=== PATIENT | male | born 1990 | race African-American/Black ===

== ENCOUNTER 2016-09-01 15:51 | Emergency (ER) | payer OTHER ==
[~2016-09-01] VITALS: Wt 89.0 kg
--- NOTE | 2016-09-01 17:25 | ERD ---
ER Documentation Chief Complaint Date/Time DATE: 09/01/16 TIME: 17:15 Chief Complaint right foot pain and swelling for 1 week HPI 26 y/o male presents to ED for right ankle pain for about 2 weeks. Pain was described as dull non-radiating 6/10 in rate. Reports that he tripped and fell 2 weeks ago, rolled his right ankle. States that he was ambulatory right after his injury. Patient is requesting an x-ray of his right ankle and foot. Denies headache, loss of consciousness, dizziness, blurry vision, changes in vision, photophobia, facial pain, ear pain, throat pain, difficulty swallowing, neck pain, shoulder pain, chest pain, cough, hemoptysis, abdominal pain, back pain, loss of appetite, nausea, vomiting, hematochezia, diarrhea, constipation, urinary symptoms, bladder and bowel incontinences, extremity weakness, extremity tenderness, numbness or tingling sensation, difficulty walking, recent travel, recent exposure to illness, recent antibiotic use in the last 3 months, fever, chills. Allergy: NKA PMH: Denies Medications: Denies Surgery: Denies Family history: Denies Primary Social History: Denies Occasional drinks alcoholic beverages. Denies smoking, use of illegal drugs. ROS All systems reviewed and are negative except as per history of present illness. Medications Home Meds Active Scripts Ibuprofen* (Motrin*) 600 Mg Tab, 600 MG PO Q6 Y for PAIN, #30 TAB Prov:REAGAN LORA 09/01/16 Allergies Allergies: Coded Allergies: No Known Allergy (Unverified , 09/01/16) PMhx/Soc History of Surgery: No Anesthesia Reaction: No Hx Neurological Disorder: No Hx Respiratory Disorders: No Hx Cardiac Disorders: No Hx Psychiatric Problems: No Hx Miscellaneous Medical Probl: No Hx Alcohol Use: Yes Hx Substance Use: No Hx Tobacco Use: No Smoking Status: Never smoker FmHx Denies Physical Exam Vitals Vital Signs Date Time Temp Pulse Resp B/P Pulse Ox O2 Delivery O2 Flow Rate FiO2 09/01/16 15:54 98.6 69 20 129/76 98 Physical Exam CONSTITUTIONAL: Well-appearing; well-nourished; in no apparent distress. HEAD: Normocephalic; atraumatic. EYES: Conjunctiva clear, sclera non-icteric, EOM intact. PERRL Ears: Hearing intact. EACs clear, TMs non-bulging, non-inflamed, translucent & mobile, ossicles normal appearance, No obstructions, no erythema, no discharges Nose: No obstructions. No polyps. No external lesions. Mucosa non-inflamed. No external lesions, septum and turbinates normal. No rhinorrhea. No discharges. Frontal sinus is non-tender to palpation. Maxillary sinus is non-tender to palpation. MOUTH: Moist mucous membranes, no lesion, no obstructions, no vesicles, no thrush, patent airway Throat: Uvula in midline. Right tonsil is +1 with no erythema, no exudate. Left tonsil is +1 with no erythema, no exudate. Tolerating secretions well. Good gag reflex. Patent airway. Neck: Supple, without lesions, bruits, or adenopathy. No mass. Thyroid non- enlarged and non-tender to palpation. CHEST: Symmetrical chest. Respirations even and not labored. No retractions noted. CARDIOVASCULAR: Normal S1, S2. RRR. No murmurs, gallops. RESPIRATORY: Normal chest excursion with respiration; breath sounds clear and equal bilaterally; no wheezes, rhonchi, or rales. Breathing even and unlabored. Speaking in clear, full, and complete sentences w/ ease. ABDOMEN: Normal bowel sounds normal. Soft, round, non-distended, non-guarding, no tenderness, no rebound, no organomegaly, no masses, no pulsating abdominal mass. No hernia. No peritoneal signs. : No CVA tenderness. BACK: Symmetrical shoulder. Spine is midline without deformity, tenderness. No evidence of trauma or deformity. PELVIS: Stable pelvis. No evidence of trauma or deformity. MUSCULOSKELETAL: Normal gait and station. No misalignment, asymmetry, crepitation, defects, tenderness, masses, effusions, decreased range of motion, instability, atrophy or abnormal strength or tone in the head, neck, spine, ribs , pelvis or extremities. No calf tenderness. Mild tenderness to lateral and medial ankle. Right ankle has full range of motion without pain. No obvious discoloration, swelling, deformity to right ankle/foot. Right knee is unremarkable. Right hip is unremarkable. Circulation and sensation is intact. No neurovascular deficits. NEUROVASCULAR: Distal pulses are present. Pedal pulse are present, equal, and normal. Capillary refills are < 2 seconds. NEUROLOGIC: Alert and oriented x4. Speaks full and clear sentences. Cranial Nerves II-XII normal. Sensation to pain, touch, and proprioception normal. Grossly unremarkable. No neurologic deficits. Romberg test is negative. PSYCHOLOGICAL: The patients mood and manner are appropriate. No hallucinations , delusions. Not SI. Not HI. Has the capacity to decide for self SKIN: Normal for age and ethnicity; warm; dry; good turgor; no apparent lesions or exudates. No rashes, hives, discoloration. Intact. Results 24 hrs Current Medications Medications (Trade) Dose Ordered Sig/Ivan Route PRN Reason Start Time Stop Time Status Last Admin Dose Admin Ibuprofen (Motrin) 800 mg ONCE ONCE PO 09/01/16 17:30 09/01/16 17:31 DC 09/01/16 17:32 Procedures/MDM Examination: Unremarkable examination except mild tenderness to lateral and medial ankle. Right ankle has full range of motion without pain. No obvious discoloration, swelling, deformity to right ankle/foot. Right knee is unremarkable. Right hip is unremarkable. Circulation and sensation is intact. No neurovascular deficits. Disease process, medical treatment was explained to the patient and family member. They verbalized understanding and agreed with the diagnostic tests, medical treatment, and follow-up care. Radiology: X-ray of right ankle/foot revealed no fractures, bony abnormality. Treatment: Onesimo wrap to right ankle application. No neurovascular deficits prior to and after the application of Onesimo wrap. Ambulatory with steady gait. Patient instructed with rest, ice, compression, and elevation at home. Re-evaluation: No neurovascular deficits prior to and after the application of Onesimo wrap. Ambulatory with steady gait. Consultation: None Differential diagnosis: Fracture versus contusion versus sprain Medical decision [id number] y/o male presents to ED for right ankle pain for about 2 weeks. Pain was described as dull non-radiating 6/10 in rate. Reports that he tripped and fell 2 weeks ago, rolled his right ankle. States that he was ambulatory right after his injury. Patient is requesting an x-ray of his right ankle and foot. X-ray of the right foot/ankle was done and revealed no fractures, or bony abnormalities. Disease process, diagnostic test, treatment, follow-up care was explained to patient. He verbalized understanding. Low suspicion for fracture. Discharged with final diagnosis of sprain. Case and medical management was discussed with supervising doctor. He agreed with present treatment and after care. Medications prescribed are the following: Motrin Patient and family member are made aware of the side effects and adverse reactions of the medications prescribed. Instructed on when to seek emergent and medical attention in case allergic/anaphylactic reactions or severe side effects and or adverse reactions to medications. Patient and family member verbalized understanding. Patient instructed Instructed to follow-up with his PCP in 24-48 hours. Instructed to Call 911 for chest pain, shortness of breath. Advised to come back here in ED as soon as possible for severity of symptoms which includes but not limited to: any new symptoms; shortness of breath/difficulty of breathing; cardiovascular changes; severe gastrointestinal symptoms; signs and symptoms of bleeding and or infection; signs of compartment syndrome/neurovascular changes; neurological changes/deficits. Patient and family member verbalized understanding. Upon discharge, patient is alert and oriented x 4, speaks full and clear sentences, denies pain, has no neurological deficits, has no neurovascular deficits, difficulty of breathing. Breathing even and unlabored. Lung sounds are clear to auscultation. Not in distress. Appears comfortable. Ambulatory with steady gait. No neurovascular deficits. Appears satisfied with care provided here in ED. Departure Condition: Good Additional Instructions: Patient instructed Instructed to follow-up with his PCP in 24-48 hours. Instructed to Call 911 for chest pain, shortness of breath. Advised to come back here in ED as soon as possible for severity of symptoms which includes but not limited to: any new symptoms; shortness of breath/difficulty of breathing; cardiovascular changes; severe gastrointestinal symptoms; signs and symptoms of bleeding and or infection; signs of compartment syndrome/neurovascular changes; neurological changes/deficits. Patient and family member verbalized understanding. REAGAN LORA Sep 01, 2016 17:25
[2016-09-01] MEDS ORDERED: IBUPROFEN 800 MG TAB PO ONE (17:30)
--- NOTE | 2016-09-01 18:07 | RADRPT ---
PROCEDURE: XR Right Ankle. CLINICAL INDICATION: Trauma. Right ankle pain. TECHNIQUE: 3 views. Frontal, lateral, and oblique. COMPARISON: None. FINDINGS: There is no fracture or dislocation. The soft tissues are normal. Articular surfaces are intact. There is no lytic or blastic lesion. There is no radiopaque foreign body. IMPRESSION: 1. Normal images of the right ankle. RPTAT: QQ .Jamar Vazquez MD, MD Date Time Electronically viewed and signed by .Jamar Vazquez MD, on 09/01/2016 18:07 .R/
[2016-09-01] MEDS ORDERED: IBUP-1542 PO (18:41)
== END 2016-09-01 18:50 | disposition home or self-care (01) ==
LOC: FTE 15:51
DX: S99.911A Unspecified injury of right ankle, initial encounter (principal); W01.0XXA Fall on same level from slipping, tripping and stumbling without subsequent striking against object, initial encounter; Y92.9 Unspecified place or not applicable
CPT/HCPCS: 73610; Z7502; Z7610